=== PATIENT | female | born 1965 | race Caucasian/White ===

== ENCOUNTER 2023-07-19 10:15 | Day surgery (SDC) | payer BC, SELFPAY ==
[2023-07-19] VITALS (12 sets, daily range): BP systolic 92–131; BP diastolic 40–64; BMI 36.6
[2023-07-19] MEDS: NSS 255 ML IV (12:26)
--- NOTE | 2023-07-19 13:47 | ITS.CL.CATH ---
[facility] - Catheterization
Cardiac Catheterization
Procedure Report:
CARDIAC CATHETERIZATION REPORT
Date of Procedure: 07/19/2023
Referring: Sherif Goldstein M.D., Ph.D.
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
PROCEDURE:
1. Left-sided coronary angiography.
2. Successful IFR of the left circumflex/second obtuse marginal.
ACCESS:
6 Greek right radial artery.
CATHETERS:
1. 6 Greek EBU 3.5 guiding catheter.
HEMODYNAMIC DATA
Weight (kg): 84.8
AO (s/d/x, mmHg): 104/59/79
LV (s/x mmHg): Not obtained.
LEFT VENTRICULOGRAPHY: Not performed.
CORONARY ANGIOGRAPHY
Dominance: Right.
Left Main: Normal size, bifurcating vessel. There is no coronary artery disease.
LAD: Normal size vessel giving rise to 2 diagonals. Patent stents are visible in the proximal and mid LAD with no evidence of in-stent restenosis. The previously occluded master septal demonstrates RASHAD-3 flow.
Ramus: Congenitally absent.
Circumflex: Normal size, nondominant vessel giving rise to 2 obtuse marginals then terminating as a small left posterolateral branch. There is a 60-70% lesion in the distal circumflex extending into the ostium of the second obtuse marginal.
RCA: Not injected. Known to be a large size, dominant vessel with a significant posterolateral arcade and a 30-40% lesion in the mid vessel.
INTERVENTION(S)
1. Successful IFR of the 60-70% left circumflex/OM 2 lesion, demonstrating nonocclusive disease (IFR = 0.92).
Narrative:
The decision was made to perform physiologic testing. The 6 Greek EBU 3.5 guiding catheter was advanced into the ascending aorta and seated in the left main coronary artery. Additional heparin was given to obtain an ACT greater than 250 seconds.
An iFR wire was zeroed outside of the body, then inserted into the guiding sheath. The wire was advanced and the transducer was normalized just outside of the guiding catheter tip. The wire was advanced into the mid OM 2, distal to the 60-70%
lesion. Three iFR measurements were taken. The lesion was determined to be nonocclusive (0.92).
Closure Device: Vascular band.
Radiation (mGy): 195.08
DAP (cm2.Gy): 16.6292
Fluoroscopy time (minutes): 3.5
Sedation time (minutes): 27
CONCLUSIONS
1. Right dominant circulation with patent stents in the proximal/mid LAD and a nonocclusive 60-70% lesion in the distal circumflex/OM2 ostium (IFR = 0.92).
RECOMMENDATIONS:
1. Expectant management after cardiac catheterization via right radial approach.
2. Limited weight bearing on the right wrist for one week.
3. Continue dual antiplatelet therapy with aspirin and clopidogrel.
4. Continue secondary prevention with high-dose, high potency statin and diet/lifestyle modification.
5. Stable for outpatient follow-up.
Copy to: Sherif Goldstein M.D., Ph.D., [facility].Nithya.
Sanju Mcdonald DO, FACC, FACP
[2023-07-19 15:41] LABS: ACT-LR - POC > 397 Seconds (116-155)
[2023-07-19] MEDS: NSS 1000 IV (17:04)
== END 2023-07-19 18:20 | disposition home or self-care (01) ==
LOC: CATH 10:15
PROVIDERS: ATTENDING PHYSICIAN Internal Medicine Cardiovascular Disease; FAMILY PHYSICIAN Family Medicine; OTHER PHYSICIAN Internal Medicine
DX: I25.10 Atherosclerotic heart disease of native coronary artery without angina pectoris (principal); I10 Essential (primary) hypertension; E78.00 Pure hypercholesterolemia, unspecified; E03.9 Hypothyroidism, unspecified; I25.2 Old myocardial infarction; Z95.5 Presence of coronary angioplasty implant and graft; Z79.82 Long term (current) use of aspirin; Z79.02 Long term (current) use of antithrombotics/antiplatelets
CPT/HCPCS: C1769; 85347; 93454; 93571; C1894; Q9967

== ENCOUNTER 2023-07-22 09:08 | Emergency (ER) | payer BC, SELFPAY ==
[2023-07-22 09:09] VITALS: BP 187/79
--- NOTE | 2023-07-22 10:07 | ED.GENMED ---
History of Present Illness
General
Chief Complaint: Post Operative Problem(s)
Source: patient, records and spouse
Exam Limitations: none
Time Seen by Provider: 07/22/23 09:52
Nursing documentation reviewed up to this point in time: agreed with
Travel History
Have you had any contact with someone who has COVID-19?: No
Do you have any symptoms of coronavirus? Fever > 100 degrees, chills, cough, shortness of breath, sore throat, loss of taste or smell, muscle aches, or headache?: No
History of Present Illness
History of Present Illness:
Patient is a 58-year-old female with a history of lupus who had a cardiac catheterization on the of this month with a stent placed in the circumflex and today presents with right increasing wrist pain with swelling. Patient states that it
became significantly worse Over the past 24 hours. Patient denies fever or chills, chest pain or shortness of breath. Patient has had a cardiac catheterization before does not remember it being this painful. Patient denies numbness or
paresthesias. Patient denies any pallor to the hand. Patient is right-hand dominant. Patient is on Plavix and aspirin.
Past History
Past History
ED Past Medical History: HTN, Hypothyroidism, Other (Hemolytic anemia currently on prednisone 60 a day, lupus) and Other (pancreatitis)
ED Past Surgical History: Cholecystectomy, (1994, 1996) and Orthopedic (carpal tunnel)
Social History
Tobacco: Non-smoker
Alcohol: Occasional
Drug: None
Personal:
Living: with family
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
Family History
Family History: Other (Noncontributory)
Review of Systems
Review of Systems
All Other Systems: ROS reviewed and negative except as documented in HPI and ROS
Constitutional: Denies fever or chills
Respiratory: Denies trouble breathing
Cardiac: Denies chest pain
ABD/GI: Reports no symptoms
Musculoskeletal: Reports other (Pain in right wrist and forearm)
Skin: Reports no symptoms
Neurological: Denies numbness
Hematologic/Lymphatic: Reports bruising
Phy Exam
Physical Exam
Physical Exam:
Physical Exam
General: mild to moderate distress, alert and appropriate, well nourished, well hydrated
HENT: Normocephalic, supple with no lymphadenopathy, no thyromegaly
Eyes: Clear sclera, conjuctiva without injection
Heart: Regular rhythm and rate. No S3, S4. No murmur.
Lungs: No respiratory distress, no stridor, lung sounds clear and equal bilaterally
Neuro: Alert and oriented x 3, CN II - XII intact, no motor focality, no cerebellar dysfunction
Skin: Ecchymosis and swelling along the volar aspect of the right forearm distally with no signs of cellulitis. Unable to do an Kendall's test due to pain
Psychiatric: well kept. interactive and cooperative
Extremities: No edema, cyanosis
Scores
Heart Failure Risk
Heart Failure Risk Score: Not Applicable
Heart Score for Chest Pain Patients
STEMI patient?: Not applicable
Withdrawal Assessment of Alcohol
Withdrawal Assessment Completed?: Not applicable
Course
Orders/Labs/Results
Orders:
Orders
07/22/23 10:05
Ondansetron Orally Disint [Zofran Odt (Orally Disintegrating)] 4 mg PO NOW STA
Oxycodone/Acetaminophen [Percocet 5/325] 1 tablet PO NOW STA
07/22/23 10:06
US Vascular Exam Limited Urgent
Reason For Exam: cardiac cath r radial 07/19 swelling pain vasc ok
07/22/23 12:50
Sling Right-Treatment ONCE
Pipestem Wrist Right-Tx ONCE
Vital Signs
Initial and Last Documented VS:
Initial Vital Signs
Temp Pulse Resp BP Pulse Ox
98.1 F 76 18 187/79 100
07/22/23 09:09 07/22/23 09:09 07/22/23 09:09 07/22/23 09:09 07/22/23 09:09
Last Documented Vital Signs
Temp Pulse Resp BP Pulse Ox
98.1 F 54 16 116/66 96
07/22/23 09:09 07/22/23 13:32 07/22/23 13:32 07/22/23 13:32 07/22/23 13:32
*Radiology
Radiology exam reviewed: radiology read reviewed (Hematoma)
*Pulse Oximetry
Patient hypoxic: no
*EKG
Interpreted by ED Provider?: NA
*[employer] Interpretation
Rate: [employer]- N/A
*Critical Care Note
Total Time (30-74mins, 75-104mins- exclusive of procedures): Not Applicable
Update Note
Update Note:
At this time there is no signs of infection. Appears to be old bruising and swelling. Patient is actually feeling better. Patient will be splinted and placed in a sling. Went over the splint and sling and elevation as well as ice with the
patient. Patient understands if any increasing redness that she may need to go on antibiotics but not at this time.
ED Attending Note
-
Portions of this chart may have been created with voice recognition software.� Occasional wrong word or��sound alike� substitutions may have occurred due to the inherent limitations of voice recognition software.
Discharge Plan
Departure
Patient Disposition: Home (Routine Discharge)
Date of Disposition: 07/22/23
Time of Disposition: 12:50
Patient with high blood pressure during this ER visit?: Yes
Condition: Good
Covid-19: Not Applicable
Discharge Problem:
Hematoma of right forearm
Instructions: Contusion (DC), BLOOD PRESSURE, RICE Therapy
Prescriptions:
New
oxycodone 5 mg tablet
5 mg PO Q4H PRN (Reason: Pain) Qty: 14 0RF
No Action
aspirin 81 mg Tablet,Delayed Release (Dr/Ec)
81 mg PO DAILY
folic acid 1 mg tablet
1 mg PO QPM
hydroxychloroquine 200 mg tablet
400 mg PO HS
levothyroxine 112 mcg tablet
112 mcg PO DAILY
escitalopram oxalate 20 mg tablet
20 mg PO DAILY
bupropion HCl 150 mg tablet extended release 24 hr
300 mg PO DAILY
atorvastatin 40 mg Tablet
40 mg PO QPM Qty: 30 0RF
clopidogrel 75 mg Tablet
75 mg PO DAILY Qty: 30 0RF
carvedilol 3.125 mg Tablet
6.25 mg PO BID Qty: 60 0RF
nitroglycerin 0.4 mg Tablet, Sublingual
0.4 mg sublingual [id number] PRN (Reason: chest pain) Qty: 30 0RF
losartan 100 mg Tablet
100 mg PO DAILY Qty: 30 0RF
cholecalciferol (vitamin D3) [Vitamin D3] 25 mcg (1,000 unit) Capsule
50 mcg PO QPM
Referrals:
Mary Elizabeth, DO [Family Provider] - Follow up in 5-7 days
Activity Restrictions/Additional Instructions:
Continue present medications and therapy. Use ice to the area 20 to 30 minutes 4-5 times a day. Any increasing redness or fever please return
Interventions
Interventions:
*Risk Screen - Suicide Last Done: 07/22/23 11:02
*General Assessment Last Done: 07/22/23 11:02
*Neglect/Abuse Screening Last Done: 07/22/23 11:02
ED- Fall Risk Assessment Last Done: 07/22/23 11:02
*ED COVID-19 Vaccine History Last Done: 07/22/23 09:09
*Nursing Disposition Last Done: 07/22/23 13:39
ED-Skin Assessment Last Done: 07/22/23 11:02
Discharge Date and Time
Discharge Date/Time: 07/22/23 13:39
[2023-07-22] MEDS: PERCOCET 5/325 1 TABLET PO (11:01)
[2023-07-22] MEDS: ZOFRAN ODT (ORALLY DISINTEGRATING) 4 MG PO (11:01)
[2023-07-22 13:32] VITALS: BP 116/66
== END 2023-07-22 13:39 | disposition home or self-care (01) ==
LOC: EMR 09:08
PROVIDERS: EMERGENCY PHYSICIAN Emergency Medicine; FAMILY PHYSICIAN Family Medicine
DX: S50.11XA Contusion of right forearm, initial encounter (principal); X58.XXXA Exposure to other specified factors, initial encounter; Z79.82 Long term (current) use of aspirin; I10 Essential (primary) hypertension; E03.9 Hypothyroidism, unspecified; D58.9 Hereditary hemolytic anemia, unspecified; M32.9 Systemic lupus erythematosus, unspecified; Z90.49 Acquired absence of other specified parts of digestive tract; Z95.5 Presence of coronary angioplasty implant and graft
CPT/HCPCS: 99284; 29125; 93926

== ENCOUNTER 2023-07-31 10:27 | Outpatient (RCR) | payer BC, SELFPAY | END 2023-07-31 23:59 | disposition home or self-care (01) | LOC: CRHB 10:27 | PROVIDERS: ATTENDING PHYSICIAN Internal Medicine | DX: I25.10 Atherosclerotic heart disease of native coronary artery without angina pectoris (principal); Z95.5 Presence of coronary angioplasty implant and graft; I25.2 Old myocardial infarction | CPT/HCPCS: 93797; 93798 ==

== ENCOUNTER 2023-08-30 09:54 | Outpatient (RCR) | payer BC, SELFPAY | END 2023-08-30 23:59 | disposition home or self-care (01) | LOC: CRHB 09:54 | PROVIDERS: ATTENDING PHYSICIAN Internal Medicine | DX: I25.10 Atherosclerotic heart disease of native coronary artery without angina pectoris (principal); Z95.5 Presence of coronary angioplasty implant and graft; I25.2 Old myocardial infarction | CPT/HCPCS: 93797; 93798 ==

== ENCOUNTER 2023-09-13 14:08 | Outpatient (RCR) | payer BC, SELFPAY | END 2023-09-13 23:59 | disposition home or self-care (01) | LOC: CRHB 14:08 | PROVIDERS: ATTENDING PHYSICIAN Internal Medicine | DX: I25.2 Old myocardial infarction (principal); Z95.5 Presence of coronary angioplasty implant and graft; I25.10 Atherosclerotic heart disease of native coronary artery without angina pectoris | CPT/HCPCS: 93306; 93797; 93798 ==